=== PATIENT | male | born 1940 | race Caucasian/White ===

== ENCOUNTER 2016-05-31 16:15 | Emergency (ER) | payer MEDICARE, OTHER ==
[2016-05-31] MEDS ORDERED: DOXYCYCLINE 100 MG TABLET PO STA (17:13)
[2016-05-31] MEDS ORDERED: predniSONE 20 MG TABLET PO STA (17:13)
[2016-05-31] MEDS ORDERED: IPRATROPIUM/ALBUTEROL 3 ML NEB INH STA (17:13)
[2016-05-31] MEDS ORDERED: DOXYCYCLINE 100 MG TABLET PO ONE (17:18)
[2016-05-31] MEDS ORDERED: predniSONE 20 MG TABLET ONE (17:18)
[2016-05-31] MEDS ORDERED: IPRATROPIUM/ALBUTEROL 3 ML NEB INH ONE (17:26)
== END 2016-05-31 17:53 | disposition home or self-care (01) ==
DX: J44.1 Chronic obstructive pulmonary disease with (acute) exacerbation (principal); Z87.891 Personal history of nicotine dependence; R03.0 Elevated blood-pressure reading, without diagnosis of hypertension
CPT/HCPCS: 71020; 94640; 99283; 99284; A9270; J7512; J7620